=== PATIENT | female | born 1965 | race Caucasian/White ===

== ENCOUNTER 2022-07-16 08:37 | Emergency (ER) | payer BC ==
[~2022-07-16] VITALS: Ht 157.5 cm; Wt 50.8 kg
[2022-07-16] MEDS ORDERED: ASPIRIN 325 MG TABLET PO ONE (09:00)
[2022-07-16] MEDS ORDERED: ASPIRIN 325 MG TABLET ONE (09:03)
--- NOTE | 2022-07-16 09:06 | NUR ---
MD AT BEDSIDE FOR EVAL. MEDICATED PER MD ORDER.
--- NOTE | 2022-07-16 09:15 | NUR ---
informed patient that will need to draw blood and will place an IV as part of the treatment and tests. Patient declined only allowed for EKG to be done and will wait for Dr to view.
--- NOTE | 2022-07-16 09:16 | NUR ---
Dr. Dupree went inside to speak with patient and patient decided to go AMA.
[2022-07-16 09:27] VITALS: BP 120/90
== END 2022-07-16 09:28 | disposition left against medical advice (07) ==
LOC: ER 08:37
DX: R07.9 Chest pain, unspecified (principal); Z88.0 Allergy status to penicillin; Z53.29 Procedure and treatment not carried out because of patient's decision for other reasons
CPT/HCPCS: 93005; A4663

== ENCOUNTER 2023-04-11 22:24 | Emergency (ER) | payer BC ==
[~2023-04-11] VITALS: Ht 157.5 cm; Wt 49.9 kg
[2023-04-11] MEDS ORDERED: HYDROMORPHONE 1 MG/1 ML DISP.SYRIN IV ONE (23:30)
[2023-04-11] MEDS ORDERED: IV NORMAL SALINE 1000 ML BAG IV ONE (23:30)
[2023-04-11] MEDS ORDERED: ONDANSETRON 4 MG/2 ML VIAL IV ONE (23:30)
[2023-04-11 23:46] LABS: BASOPHILS % (AUTO) 0.3 % (0.0-2.0); EOSINOPHILS # (AUTO) 0.1 K/uL (0.0-0.7); EOSINOPHILS % (AUTO) 1.5 % (0.0-7.0); HEMATOCRIT 40.5 % (31.2-41.9); HEMOGLOBIN 13.6 g/dL (10.9-14.3); LYMPHOCYTES # (AUTO) 1.6 K/uL (0.8-4.8); LYMPHOCYTES % (AUTO) 21.2 % (20.5-51.5); MEAN CORPUSCULAR HEMOGLOBIN 29.2 uug (24.7-32.8); MEAN CORPUSCULAR HGB CONC 34 g/dL (32.3-35.6); MEAN CORPUSCULAR VOLUME 86.7 fL (75.5-95.3); MONOCYTES # (AUTO) 0.4 K/uL (0.1-1.30); MONOCYTES % (AUTO) 4.7 % (0.0-11.0); NEUTROPHILS # (AUTO) 5.5 K/uL (1.8-8.9); NEUTROPHILS % (AUTO) 72.3 % (38.5-71.5); PLATELET COUNT (AUTO) 362 K/uL (179-408); RED BLOOD CELL COUNT(AUTO) 4.67 MIL/uL (3.63-4.92); RED CELL DISTRIBUTION WIDTH 12.7 % (12.3-17.7); WHITE BLOOD COUNT (AUTO) 7.6 K/uL (3.8-11.8)
[2023-04-11 23:47] LABS: *BILIRUBIN,URIN NEGATIVE (NEGATIVE); *BLOOD, URINE NEGATIVE (NEGATIVE); *COLOR,URINE YELLOW (YELLOW); *KETONES,URINE NEGATIVE (NEGATIVE); *PROTEIN,URINE 2+ (NEGATIVE); *UROBILINOGEN,URINE 0.2 E.U./dl (NORMAL); LEUKOCYTE ESTERASE ,URINE 1+ (NEGATIVE); NITRITE, URINE NEGATIVE (NEGATIVE); PH,URINE 8.5 (5.0-8.0); UGLUCOSE NEGATIVE (NEGATIVE)
[2023-04-11 23:49] LABS: *CLARITY,URINE CLOUDY (CLEAR)
[2023-04-11 23:49] LABS: DIFFERENTIAL COMMENT 1
[2023-04-11 23:53] LABS: CALCIUM 9.8 mg/dL (8.5-10.1); CREATININE 0.7 mg/dL (0.6-1.3); POTASSIUM 3.2 mmol/L (3.5-5.1)
[2023-04-11 23:59] LABS: BACTERIA,URINE NONE SEEN /HPF (NONE SEEN); RBC,URINE NONE SEEN /HPF (0-3); SQUAMOUS EPITHELIAL CELL,UR FEW /HPF (NONE SEEN)
[2023-04-11 23:59] LABS: ALBUMIN 3.8 g/dL (3.4-5.0); BILIRUBIN,DIRECT 0.1 mg/dL (0.0-0.2); BILIRUBIN,TOTAL 0.3 mg/dL (0.2-1.0); TOTAL PROTEIN, SERUM 7.1 g/dL (6.4-8.2)
[2023-04-12] MEDS ORDERED: IOHEXOL 300MG/ML 100 ML INFUS..BTL ONE (00:21)
[2023-04-12] MEDS ORDERED: SWABABLE VALVE TRANSFER SET EA MC ONE (00:22)
[2023-04-12] MEDS ORDERED: IV NORMAL SALINE 250 ML IV ONE (00:22)
[2023-04-12] MEDS ORDERED: POTASSIUM CHLORIDE 50 ML ONE (01:04)
[2023-04-12] MEDS: POTASSIUM CHLORIDE 50 ML IV SCH ×2 (01:05→01:06)
[2023-04-12] MEDS ORDERED: POTASSIUM CHLORIDE 150 ML ONE (01:59)
[2023-04-12] MEDS ORDERED: POTASSIUM CHLORIDE 50 ML IV SCH (02:15)
[2023-04-12] MEDS ORDERED: POTASSIUM BICARBONATE/CIT AC 25 MEQ TABLET.EFF PO ONE (04:15)
[2023-04-12] MEDS ORDERED: BISACODYL 5 MG TABLET.DR PO ONE ×2 (04:15→04:25)
[2023-04-12] MEDS ORDERED: MAGNESIUM HYDROXIDE 30 ML LIQUID UDC PO ONE (04:15)
[2023-04-12] MEDS ORDERED: BISA10SU61 RC (04:17)
[2023-04-12] MEDS ORDERED: BISA-79 PO (04:17)
[2023-04-12] MEDS ORDERED: SULF1TAB48 PO (04:23)
[2023-04-12] MEDS ORDERED: MAGNESIUM HYDROXIDE 30 ML LIQUID UDC ONE (04:25)
[2023-04-12] MEDS ORDERED: POTASSIUM BICARBONATE/CIT AC 25 MEQ TABLET.EFF ONE ×2 (04:25→04:26)
[2023-04-12] MEDS ORDERED: SULFAMETH/TRIMETH 800/160 MG TABLET PO ONE (04:30)
[2023-04-12] MEDS ORDERED: SULFAMETH/TRIMETH 800/160 MG TABLET ONE (04:36)
[2023-04-12 04:45] VITALS: BP 100/63; O2SAT 97
== END 2023-04-12 04:46 | disposition home or self-care (01) ==
LOC: ER 22:30
DX: K59.00 Constipation, unspecified (principal); E87.6 Hypokalemia; R82.81 Pyuria; Z88.0 Allergy status to penicillin; Z79.899 Other long term (current) drug therapy
CPT/HCPCS: 99285; 74177; 80076; 80048; 81001; 85025; 36415; 93005; 87086; 96365; 96361; Q9967; J3480 ×2; J7040; A4606; A4663